=== PATIENT | male | born 1995 | race Caucasian/White ===

== ENCOUNTER → 2017-09-13 | Outpatient (CLI) | payer OTHER ==
[2017-09-13 18:16] LABS: BASO # 0.1 10^3/uL (0.0-0.2); BASO % 0.4 % (0.0-1.0); EOS % 0.1 % (0.0-3.0); HEMATOCRIT 43.6 % (42.0-52.0); HEMOGLOBIN 14.5 g/dl (14.0-18.0); IMMATURE GRANULOCYTE % 0.4 % (0-0); LYMPH # 1.8 10^3/uL (1.5-6.5); LYMPH % 16.5 % (24.0-44.0); MEAN CORPUSCULAR HEMOGLOBIN 30.1 pg (27.0-33.0); MEAN CORPUSCULAR HGB CONC 33.3 g/dl (32.0-36.5); MEAN CORPUSCULAR VOLUME 90.6 fl (80.0-96.0); MONO # 1.2 10^3/uL (0.0-0.8); MONO % 10.6 % (0.0-5.0); PLATELET COUNT, AUTOMATED 240 10^3/uL (150-450); RED BLOOD COUNT 4.81 10^6/uL (4.30-6.10); RED CELL DISTRIBUTION WIDTH 11.8 % (11.5-14.5); WHITE BLOOD COUNT 11.1 10^3/uL (4.0-10.0)
[2017-09-13 18:24] LABS: ALBUMIN 3.6 GM/DL (3.2-5.2); ALBUMIN/GLOBULIN RATIO 0.86 (1.00-1.93); ALKALINE PHOSPHATASE 60 U/L (45-117); ALT/SGPT 14 U/L (12-78); ANION GAP 8 MEQ/L (8-16); AST/SGOT 10 U/L (7-37); BILIRUBIN,TOTAL 0.4 MG/DL (0.2-1.0); BLOOD UREA NITROGEN 12 MG/DL (7-18); CARBON DIOXIDE LEVEL 29 MEQ/L (21-32); CHLORIDE LEVEL 102 MEQ/L (98-107); CREATININE FOR GFR 1.01 MG/DL (0.70-1.30); GLOMERULAR FILTRATION RATE > 60.0 (>60); GLUCOSE, FASTING 101 MG/DL (70-105); POTASSIUM SERUM 3.8 MEQ/L (3.5-5.1); SODIUM LEVEL 139 MEQ/L (136-145); TOTAL PROTEIN 7.8 GM/DL (6.4-8.2)
[2017-09-17 06:46] LABS: EBV VIRAL CAPSID AG IgM <36.0
[2017-09-17 06:56] LABS: EBV INTERPRETATION EBV Interpretation
== END ==
LOC: M WUC 16:08
DX: J02.9 Acute pharyngitis, unspecified (principal); R53.83 Other fatigue

== ENCOUNTER 2018-07-13 08:49 | Emergency (ER) | payer OTHER | END 2018-07-13 09:52 | disposition home or self-care (01) | LOC: M ED 08:49 | DX: S20.212A Contusion of left front wall of thorax, initial encounter (principal); W22.8XXA Striking against or struck by other objects, initial encounter; Y92.9 Unspecified place or not applicable; Y93.89 Activity, other specified; Y99.1 Military activity | CPT/HCPCS: 71101 ==

== ENCOUNTER → 2019-07-15 | Outpatient (CLI) | payer OTHER ==
[~2019-07-15] MED LIST: [UNRECOGNIZED DRUG - CODE] PO
--- NOTE | 2019-07-15 14:06 | REP ---
Digital diagnostic bilateral mammography with CAD and focused bilateral subareolar sonography: History: Hypertrophy of the left breast, palpable area behind the left breast. The patient reports that this has been present for 1 year. No comparison breast imaging. Mammographic findings: CC and MLO views of each breast were obtained. There is an asymmetric pattern of subareolar fibroglandular density without mass-like features in each breast. This is consistent with gynecomastia, left more so than right. No spiculation or architectural distortion is seen. No microcalcification or worrisome skin change is seen. Sonographic findings: Bilateral subareolar sonography is performed. There is mild heterogeneous fibroglandular tissue in the subareolar zones of the left breast consistent with gynecomastia. No finding is seen in the right subareolar sonography. No mass, architectural distortion or acoustic shadowing is seen. Impression: BIRADS 2: BI-RADS/ACR category 2 mammogram. Benign Findings. BIRADS category 2 benign findings. Gynecomastia pattern left more so than right. Clinical followup is advised. This mammogram was interpreted with the aid of an FDA-approved computer-aided detection system. The patient states he had a clinical breast exam in March 2019 . Electronically Signed by Larry Jacob MD 07/15/2019 02:20 P
== END ==
LOC: M RAD 11:26
PROVIDERS: ATTEND Physician Assistant Medical
DX: N63.20 Unspecified lump in the left breast, unspecified quadrant (principal)

== ENCOUNTER → 2019-11-19 | Outpatient (REF) | payer OTHER | LOC: M SFHCLERA 19:08 | PROVIDERS: ATTEND Physician Assistant | DX: Z53.9 Procedure and treatment not carried out, unspecified reason (principal) ==